=== PATIENT | female | born 1995 | race Caucasian/White ===

== ENCOUNTER 2018-07-11 21:18 | Emergency (ER) | payer OTHER ==
[~2018-07-11] VITALS: Ht 160 cm; Wt 61.2 kg
[~2018-07-11 21:18] MED LIST: PREN-234 PO
--- NOTE | 2018-07-11 21:21 | NUR ---
KEV ZAPATA TO ER CHAIR C
[2018-07-11 21:36] VITALS: BP 129/58
--- NOTE | 2018-07-11 21:42 | NUR ---
PT BIBA TO E. C/O ANXIETY ATTACK 45 MIN AGO WHILE THINKING ABOUT HER STEPM[facility] BEING SENT TO [facility]. LASTED 3 MIN. NO OTHER COMPLAINTS AT THIS TIME.
--- NOTE | 2018-07-11 22:44 | NUR ---
PT WAITING TO SEE EDMD
--- NOTE | 2018-07-11 22:55 | NUR ---
PT MOVEED TO ED BED 11
[2018-07-11 23:50] VITALS: BP 127/56
--- NOTE | 2018-07-11 23:50 | NUR ---
Patient discharged with v/s stable. Written and verbal after care instructions given and explained. Patient alert, oriented and verbalized understanding of instructions. Ambulatory with steady gait. All questions addressed prior to discharge. ID band removed. Patient advised to follow up with PMD. Rx of ATARAX was given. Patient educated on indication of medication including possible reaction and side effects. Opportunity to ask questions provided and answered.
== END 2018-07-11 23:50 | disposition home or self-care (01) ==
LOC: MED 21:18
DX: F41.9 Anxiety disorder, unspecified (principal); R06.02 Shortness of breath; Z90.49 Acquired absence of other specified parts of digestive tract
CPT/HCPCS: 99283

== ENCOUNTER 2018-08-15 19:05 | Emergency (ER) | payer OTHER ==
[~2018-08-15] VITALS: Ht 157.5 cm; Wt 85.7 kg
[2018-08-15 19:52] VITALS: BP 130/67
--- NOTE | 2018-08-15 19:56 | NUR ---
PT PROVIDED W/ URINE SAMPLE CUP, SENT TO LOBBY EVEN STEADY GAIT, VSS, W/ DAUGHTER.
--- NOTE | 2018-08-15 21:30 | NUR ---
PT AMBULATED TO ER BED 05
--- NOTE | 2018-08-15 21:50 | NUR ---
CAME IN ED, C/O 04/22 CONSTANT SUPRAPUBIC PAIN, X1 WEEK. PT REPORTS ASSOCIATED BURNING WITH URINATION/DYSURIA. REPORTS NAUSEA IN AM. PT DENIES FEVER, VOMITING, DIARRHEA. LBM YESTERDAY. BS ACTIVE X4, ABD SOFT ROUND TENDER. LMP 1 MONTH AGO, PT REPORTS TAKING NEGATIVE YESTERDAY. DENIES MED HX.
--- NOTE | 2018-08-15 23:00 | NUR ---
PT RESTING IN BED, VSS, REPORTS 5/10 SUPRAPUBIC PAIN, ALL NEEDS MET
--- NOTE | 2018-08-16 00:02 | NUR ---
Patient appears to be resting comfortably in bed. Vital Signs within normal limits. Respirations even and unlabored.
--- NOTE | 2018-08-16 00:21 | NUR ---
PT SENT TO U/S VIA W/C WITH [facility] [id number]
--- NOTE | 2018-08-16 00:45 | NUR ---
PT BACK FROM US
--- NOTE | 2018-08-16 01:30 | NUR ---
Patient discharged with v/s stable. Written and verbal after care instructions given and explained. Patient alert, oriented and verbalized understanding of instructions. Ambulatory with steady gait. All questions addressed prior to discharge. ID band removed. Patient advised to follow up with PMD. Rx of MOTRIN, TRAMADOL, ZOFRAN ODT given. Patient educated on indication of medication including possible reaction and side effects. Opportunity to ask questions provided and answered.
[2018-08-16 01:32] VITALS: BP 122/85
== END 2018-08-16 01:30 | disposition home or self-care (01) ==
LOC: MED 19:05
DX: N83.202 Unspecified ovarian cyst, left side (principal); N83.201 Unspecified ovarian cyst, right side
CPT/HCPCS: 36415; 76856; 81002; 81025; 84702; 99285

== ENCOUNTER 2019-06-13 17:35 | Emergency (ER) | payer OTHER ==
[~2019-06-13] VITALS: Ht 157.5 cm; Wt 81.2 kg
[2019-06-13 17:52] VITALS: BP 128/78
--- NOTE | 2019-06-13 17:54 | NUR ---
PT TO WAIT IN ER LOBBY. VSS. [id number]
[2019-06-13 19:58] VITALS: BP 118/68
--- NOTE | 2019-06-13 19:59 | NUR ---
23 YO FEMALES COMES TO ED FOR C/O ITCHINESS TO R ELBOW X 1 DAY. BILAT ELBOWS REDDENED SKIN RAISED. PT STATES IT HAS SPREAD TO L ELBOW WELL. PT DENIES FEVER CHILLS. PT DENIES N/V/D. GURNEY LOCKED IN LOWEST POSITION. WILL UPDATE ERMD. LMP: 06/09/19 HX: CHOLECYSTECTOMY, HEART MURMUR
--- NOTE | 2019-06-13 19:59 | NUR ---
PT TAKEN TO BED 4
--- NOTE | 2019-06-13 21:16 | NUR ---
Dr. Levin examining patient.
--- NOTE | 2019-06-13 21:48 | NUR ---
PATIENT ELOPED FROM FACILITY. DISCHARGE INSTRUCTIONS NOT GIVEN TO PATIENT. DR. HUBBARD NOTIFIED.
== END 2019-06-13 21:48 | disposition left against medical advice (07) ==
LOC: MED 17:35
DX: L25.9 Unspecified contact dermatitis, unspecified cause (principal); Z79.899 Other long term (current) drug therapy; Z90.49 Acquired absence of other specified parts of digestive tract
CPT/HCPCS: 99281

== ENCOUNTER 2019-06-29 18:39 | Emergency (ER) | payer OTHER ==
[~2019-06-29] VITALS: Ht 157.5 cm; Wt 81.6 kg
[2019-06-29 18:52] VITALS: BP 116/74
--- NOTE | 2019-06-29 19:20 | NUR ---
C/O MID CHEST PAIN X 1 WEEK, COUGH X TODAY. DENIES TRAUMA, NV. MED HX: GALL BLADDER REMOVAL
[2019-06-29] MEDS ORDERED: DICYCLOMINE HCL LIQUID 10 MG/5 ML UDC PO ONE (20:00)
[2019-06-29] MEDS ORDERED: LIDOCAINE VISCOUS 2% 20 ML UDC PO ONE (20:00)
[2019-06-29] MEDS ORDERED: PANTOPRAZOLE 40 MG TABEC PO ONE (20:00)
[2019-06-29] MEDS ORDERED: ALUMINUM HYD/MAG/SIMETHICONE 30 ML UDC PO ONE (20:00)
[2019-06-29 21:49] VITALS: BP 116/76
--- NOTE | 2019-06-29 21:49 | NUR ---
Patient discharged with v/s stable. Written and verbal after care instructions given and explained. Patient alert, oriented and verbalized understanding of instructions. Ambulatory with steady gait. All questions addressed prior to discharge. ID band removed. Patient advised to follow up with PMD. Rx of omeprazole given. Patient educated on indication of medication including possible reaction and side effects. Opportunity to ask questions provided and answered.
== END 2019-06-29 21:49 | disposition home or self-care (01) ==
LOC: MED 18:39
DX: K21.9 Gastro-esophageal reflux disease without esophagitis (principal); Z79.899 Other long term (current) drug therapy
CPT/HCPCS: 99284

== ENCOUNTER 2019-09-06 10:40 | Emergency (ER) | payer OTHER ==
[~2019-09-06] VITALS: Ht 157.5 cm; Wt 82.6 kg
[2019-09-06 10:46] VITALS: BP 115/60
--- NOTE | 2019-09-06 10:52 | NUR ---
PT TAKEN TO BED 7.
--- NOTE | 2019-09-06 10:55 | NUR ---
C/O HEADACHE ON TOP OF HEAD X1 DAY ACCOMPANIED BY NAUSEA & DIZZINESS. DENIES INJURY. PT STATES HER LAST PERIOD WAS JUNE 10 2019 BUT SHE HAS TESTED FOR AT HOME AND IT HAS BEEN NEGATIVE. DENIES V/D; SKIN IS PINK/WARM/DRY; AAOX4 WITH EVEN AND STEADY GAIT; LUNGS CLEAR BL; HR EVEN AND REGULAR; PT DENIES ANY FEVER, CP, SOB, OR COUGH AT THIS TIME; PATIENT STATES PAIN OF 9/10 AT THIS TIME; VSS; PATIENT POSITIONED FOR COMFORT; HOB ELEVATED; BEDRAILS UP X2; BED DOWN. ER MD MADE AWARE OF PT STATUS.
[2019-09-06] MEDS ORDERED: NACL 0.9% 1,000 ML IV ONE ×2 (11:00→12:50)
--- NOTE | 2019-09-06 11:09 | NUR ---
Dr. Ojeda evaluating patient at bedside.
--- NOTE | 2019-09-06 11:12 | NUR ---
PHLEB at bedside.
[2019-09-06 11:25] LABS: BASOPHILS # (AUTO) 0.1 K/uL (0.00-0.22); BASOPHILS % (AUTO) 0.8 % (0.0-2.0); EOSINOPHILS # (AUTO) 0.3 K/uL (0-0.4); EOSINOPHILS % (AUTO) 3.9 % (0.0-4.0); HEMATOCRIT 41.8 % (36-48); HEMOGLOBIN 14.1 g/dL (12.0-16.0); LYMPHOCYTES # (AUTO) 3.2 K/uL (2.5-16.5); LYMPHOCYTES % (AUTO) 37.7 % (20.5-51.1); MEAN CORPUSCULAR HEMOGLOBIN 30 pg (27-31); MEAN CORPUSCULAR HGB CONC 34 g/dL (33-37); MEAN CORPUSCULAR VOLUME 90.1 fL (80-94); MONOCYTES # (AUTO) 0.7 K/uL (0.8-1.0); MONOCYTES % (AUTO) 8.6 % (1.7-9.3); NEUTROPHILS # (AUTO) 4.1 K/uL (1.8-7.7); PLATELET COUNT (AUTO) 274 K/uL (140-450); RED BLOOD CELL COUNT(AUTO) 4.63 MIL/uL (4.20-5.40); RED CELL DISTRIBUTION WIDTH 12.1 % (11.6-13.7); WHITE BLOOD COUNT (AUTO) 8.4 K/uL (4.8-10.8)
[2019-09-06 11:40] LABS: ANION GAP 13.2 (8-16); CARBON DIOXIDE 27.2 mmol/L (21-32); CREATININE 0.5 mg/dL (0.6-1.3); POTASSIUM 4.4 mmol/L (3.5-5.1)
[2019-09-06 11:45] LABS: ALBUMIN 4.1 g/dL (3.4-5.0); TOTAL BILIRUBIN 0.4 mg/dL (0.0-1.0)
[2019-09-06] MEDS ORDERED: METOCLOPRAMIDE 10 MG/2 ML INJ VIAL IVP ONE (12:25)
[2019-09-06] MEDS ORDERED: diphenhydrAMINE 50 MG/ML VIAL IVP ONE (12:25)
[2019-09-06] MEDS: KETOROLAC 30 MG/ML VIAL IVP ONE ×2 (12:37→12:41)
--- NOTE | 2019-09-06 12:50 | NUR ---
PT FELT DIZZY AFTER GIVING PT REGLAN. MADE AWARE. PT REFUSED TORODOL .
[2019-09-06 13:07] LABS: APPEARANCE,URINE HAZY (CLEAR); BILIRUBIN,URINE NEGATIVE (NEGATIVE); BLOOD, URINE NEGATIVE (NEGATIVE); COLOR,URINE YELLOW (YELLOW); LEUKOCYTE ESTERASE ,URINE NEGATIVE (NEGATIVE); NITRITE, URINE NEGATIVE (NEGATIVE); PH,URINE 5.5 (5.0-9.0); UGLUCOSE NEGATIVE (NEGATIVE)
--- NOTE | 2019-09-06 13:35 | NUR ---
PT STATED SHE FEELS MUCH BETTER, NO MORE DIZZINESS.NO SOB.
--- NOTE | 2019-09-06 13:42 | NUR ---
Dr. Ojeda evaluating patient at bedside.
[2019-09-06 14:01] VITALS: BP 107/64
--- NOTE | 2019-09-06 14:02 | NUR ---
Patient discharged with v/s stable. Written and verbal after care instructions given and explained. Patient verbalized understanding. Ambulatory with steady gait. All questions addressed prior to discharge. Advised to follow up with PMD.
== END 2019-09-06 14:01 | disposition home or self-care (01) ==
LOC: MED 10:40
DX: E86.0 Dehydration (principal); R51 Headache; R06.02 Shortness of breath; Z90.49 Acquired absence of other specified parts of digestive tract; Z79.899 Other long term (current) drug therapy
CPT/HCPCS: 36415; 80053; 81003; 81025; 84702; 85025; 93005; 96361; 96374; 96375; 99284; J1200; J1885; J2765; J7030